=== PATIENT | female | born 1960 | race Caucasian/White ===

== ENCOUNTER 2018-04-03 07:47 | Inpatient (IN) | payer MEDICAID ==
[2018-03-27 13:21] LABS: ADD MAN DIFF? NO
[2018-03-27 13:22] LABS: BASOPHILS % 0.7 % (0.0-2.0); EOSINOPHILS # 0.1 10^3/ul (0.0-0.5); EOSINOPHILS % 2.2 % (0.0-7.0); HEMATOCRIT 37.8 % (37.0-47.0); HEMOGLOBIN 13.1 g/dl (12.0-16.0); LYMPHOCYTES # 1.1 10^3/ul (0.8-2.9); LYMPHOCYTES % 26.7 % (15.0-51.0); MEAN CORPUSCULAR HEMOGLOBIN 29.8 pg (29.0-33.0); MEAN CORPUSCULAR HGB CONC 34.7 g/dl (32.0-37.0); MEAN CORPUSCULAR VOLUME 86.1 fl (82.0-101.0); MEAN PLATELET VOLUME 11.6 fl (7.4-10.4); MONOCYTE # 0.4 10^3/ul (0.3-0.9); NEUTROPHIL # 2.4 10^3/ul (1.6-7.5); NEUTROPHILS % 58.7 % (39.0-77.0); PLATELET COUNT 222 10^3/UL (140-415); RED BLOOD COUNT 4.39 10^6/ul (4.20-5.40); RED CELL DISTRIBUTION WIDTH 12.9 % (11.5-14.5)
[2018-03-27 13:39] LABS: ALANINE AMINOTRANSFERASE 29 IU/L (13-69); ALBUMIN 4.6 g/dl (3.3-4.9); ALKALINE PHOSPHATASE 82 IU/L (42-121); ANION GAP 8 (5-13); ASPARTATE AMINO TRANSFERASE 34 IU/L (15-46); BILIRUBIN,INDIRECT 0.2 mg/dl (0-1.1); BILIRUBIN,TOTAL 0.2 mg/dl (0.2-1.3); BLOOD UREA NITROGEN 16 mg/dl (7-20); CALCIUM 9.5 mg/dl (8.4-10.2); CARBON DIOXIDE 27 mmol/L (21-31); CHLORIDE 103 mmol/L (97-110); CREATININE 0.74 mg/dl (0.44-1.00); Estimated GFR > 60 mL/min (>60); GLUCOSE 100 mg/dl (70-220); POTASSIUM 4.3 mmol/L (3.5-5.1); SODIUM 138 mmol/L (135-144); TOTAL PROTEIN 7.3 g/dl (6.1-8.1)
[2018-03-27 13:41] LABS: INR 0.94; PROTIME 12.7 Sec (11.9-14.9)
[2018-03-27 13:42] LABS: PARTIAL THROMBOPLASTIN TIME 28.6 Sec (23.0-35.0)
[~2018-04-03 07:47] MED LIST: DESFLURANE 15 MIN; LIDOCAINE 2% (SDV) 5 ML INJ
[2018-04-03] MEDS: CEFAZOLIN 2 GM/50 ML (PMX) 50 ML IVPB (08:00)
[2018-04-03] MEDS: SOD CHLORIDE 0.9% 1,000 ML IV (08:46)
[2018-04-03] MEDS: ACETAMINOPHEN 500 MG TAB PO (08:47)
[2018-04-03] MEDS ORDERED: FENTAnyl 50 MCG/ML VIAL ×2 (10:14→11:42)
[2018-04-03] MEDS ORDERED: MIDAZOLAM 1 MG/ML 2 ML INJ (10:14)
[2018-04-03] MEDS ORDERED: FAMOTIDINE 20 MG INJ (10:15)
[2018-04-03] MEDS ORDERED: PROPOFOL 40 ML (10:56)
[2018-04-03] MEDS ORDERED: DEXAMETHASONE 4 MG/ML 5 ML INJ (10:56)
[2018-04-03] MEDS ORDERED: ONDANSETRON 4 MG INJ (10:56)
[2018-04-03] MEDS ORDERED: CEFAZOLIN 1 GM INJ (10:56)
[2018-04-03] MEDS ORDERED: ROCURONIUM 50 MG INJ (10:56)
[2018-04-03] MEDS ORDERED: MEPERIDINE 25 MG INJ IV (12:30)
[2018-04-03] MEDS ORDERED: DIPHENHYDRAMINE 50 MG INJ IV (12:30)
[2018-04-03] MEDS ORDERED: ALBUTEROL 0.083% (NEB) 2.5 MG/3 ML AMP HHN (12:30)
[2018-04-03] MEDS ORDERED: OXYCODONE/ACETAMINOPHEN (5/325) TAB PO ×2 (12:30)
[2018-04-03] MEDS ORDERED: HYDROmorphONE 1 MG/5 ML IV SYRINGE IV ×2 (12:30)
[2018-04-03] MEDS ORDERED: LABETALOL HCL 20MG INJ IV (12:30)
[2018-04-03] MEDS ORDERED: morphine 2 MG INJ IV (14:00)
[2018-04-03] MEDS ORDERED: ONDANSETRON 4 MG INJ IV (14:00)
[2018-04-03] MEDS: FENTAnyl 50 MCG/ML VIAL IV ×2 (14:34→14:52)
[2018-04-03] MEDS: ONDANSETRON 4 MG INJ IV (14:35)
[2018-04-03] MEDS: D5W-0.45 NACL + KCL 20 MEQ 1,000 ML IV ×2 (15:47→21:56)
[2018-04-03 20:09] LABS: CALCIUM 9.1 mg/dl (8.4-10.2)
[2018-04-04] MEDS: D5W-0.45 NACL + KCL 20 MEQ 1,000 ML IV ×3 (00:11→08:19)
[2018-04-04 01:15] LABS: CALCIUM 8.9 mg/dl (8.4-10.2)
[2018-04-04] MEDS: ACETAMINOPHEN 1000MG/100ML IV 100 ML IVPB ×2 (01:27→13:47)
[2018-04-04 06:37] LABS: CALCIUM 8.6 mg/dl (8.4-10.2)
[2018-04-04] MEDS ORDERED: ACETAMINOPHEN 500 MG TAB PO (15:00)
[2018-04-04] MEDS ORDERED: HYDROCODONE/APAP (5/325) TAB PO (15:30)
[2018-04-04 16:05] LABS: CALCIUM 8.5 mg/dl (8.4-10.2)
== END 2018-04-04 17:15 | disposition home or self-care (01) | DRG 627 ==
LOC: REC 07:47 → MS1 14:55
PROC: 0GTK0ZZ Resection of Thyroid Gland, Open Approach (ICD-10-PCS; principal; 2018-04-03 10:30)
DX: C73 Malignant neoplasm of thyroid gland (principal); Z85.72 Personal history of non-Hodgkin lymphomas
CPT/HCPCS: 71045; 80053; 82310; 85025; 85610; 85730; 88307; 88331; 93005